=== PATIENT | female | born 1980 | race Two or more races ===

== ENCOUNTER 2016-11-08 18:04 | Emergency (ER) | payer MEDICAID, OTHER ==
[~2016-11-08] VITALS: Ht 149.9 cm; Wt 65.8 kg
[2016-11-08 18:36] VITALS: BP 144/99
[2016-11-08] MEDS ORDERED: HYDROmorphone HCL 2 MG/ML VL IM ONE (21:00)
[2016-11-08] MEDS ORDERED: ONDANSETRON HCL 4 MG/2 ML VIAL IM ONE (21:00)
== END 2016-11-08 21:16 | disposition home or self-care (01) ==
LOC: ER 18:08
DX: R51 Headache (principal)
CPT/HCPCS: 70450; 81025; 96372; 99284; J1170; J2405